=== PATIENT | female | born 1995 | race Two or more races ===

== ENCOUNTER 2017-09-12 18:45 | Emergency (ER) | payer OTHER ==
[~2017-09-12] VITALS: Ht 147.3 cm; Wt 42.4 kg
[2017-09-12 18:52] VITALS: BP 108/64
--- NOTE | 2017-09-12 19:28 | NUR ---
AMBULATED TO ER BED 12
--- NOTE | 2017-09-12 19:41 | NUR ---
22y F BIB FAMILY C/O L FLANK PAIN X 5 MONTHS SHARP INTERRMITTENT; PT STATES PAIN IS NON RADIATING. PT STATES SHE HAS NAUSEA BUT NO VOMIT OR DIARRHEA; PT AAOX4, BREATHING IS UNLABORED AND CLEAR BILAT. PT AMBULATED TO ER BED WITH STEADY GAIT/
--- NOTE | 2017-09-12 20:20 | NUR ---
Patient being evaluated by physician at bedside.
[2017-09-12] MEDS ORDERED: NACL 0.9% 1,000 ML IV ONE (20:25)
[2017-09-12 20:58] LABS: BASOPHILS # (AUTO) 0.1 K/uL (0.00-0.22); BASOPHILS % (AUTO) 1.9 % (0.0-2.0); EOSINOPHILS # (AUTO) 0.2 K/uL (0-0.4); EOSINOPHILS % (AUTO) 4.1 % (0.0-4.0); HEMATOCRIT 41.9 % (36-48); HEMOGLOBIN 13.8 g/dL (12.0-16.0); LYMPHOCYTES # (AUTO) 1.2 K/uL (2.5-16.5); MEAN CORPUSCULAR HEMOGLOBIN 29 pg (27-31); MEAN CORPUSCULAR HGB CONC 33 g/dL (33-37); MEAN CORPUSCULAR VOLUME 88 fL (80-94); MONOCYTES # (AUTO) 0.7 K/uL (0.8-1.0); MONOCYTES % (AUTO) 13.3 % (1.7-9.3); NEUTROPHILS # (AUTO) 3.2 K/uL (1.8-7.7); NEUTROPHILS % (AUTO) 58.7 % (42.2-75.2); PLATELET COUNT (AUTO) 176 K/uL (140-450); RED BLOOD CELL COUNT(AUTO) 4.77 MIL/uL (4.20-5.40); RED CELL DISTRIBUTION WIDTH 13.1 % (11.6-13.7); WHITE BLOOD COUNT (AUTO) 5.4 K/uL (4.5-11.0)
[2017-09-12 21:09] LABS: ANION GAP 11.2 (8-16); CARBON DIOXIDE 27.3 mmol/L (21-32); CHLORIDE 103 mmol/L (98-107); CREATININE 0.7 mg/dL (0.6-1.3); GFR ARICAN-AMERICAN 137 mL/min (>90); GLUCOSE 91 mg/dL (74-106); POTASSIUM 3.5 mmol/L (3.5-5.1); SODIUM SERUM 138 mmol/L (136-145); UREA NITROGEN, BLOOD 15 mg/dL (7-18)
[2017-09-12 21:14] LABS: ALBUMIN 3.9 g/dL (3.4-5.0); ASPARTATE AMINOTRANSFERASE 19 U/L (15-37); LIPASE 190 U/L (73-393); TOTAL BILIRUBIN 0.3 mg/dL (0.0-1.0)
--- NOTE | 2017-09-12 21:50 | NUR ---
Pt taken to CT via w/c.
[2017-09-12 22:15] LABS: APPEARANCE,URINE CLOUDY (CLEAR); BILIRUBIN,URINE 1+ (NEGATIVE); BLOOD, URINE NEGATIVE (NEGATIVE); COLOR,URINE YELLOW (YELLOW); LEUKOCYTE ESTERASE ,URINE NEGATIVE (NEGATIVE); NITRITE, URINE NEGATIVE (NEGATIVE); UGLUCOSE NEGATIVE (NEGATIVE)
[2017-09-12 22:19] LABS: BARBITURATE, URINE NEG. ng/ml (NEG <=200); BENZODIAZEPINE, URINE NEG. ng/mL (NEG <=200); CANNABINOID, URINE NEG. ng/mL (NEG <=50); COCAINE, URINE NEG. ng/mL (NEG <=300); OPIATE, URINE NEG. ng/mL (NEG <=2000); PHENCYCLIDINE SCREEN,URINE NEG. ng/mL (NEG <=25)
--- NOTE | 2017-09-12 22:31 | NUR ---
Pt came back from CT.
[2017-09-12 22:42] LABS: RBC,URINE 0-5 (RARE) /HPF (0-5); WBC,URINE 0-5 (RARE) /HPF (0-5)
[2017-09-12 22:43] LABS: URINE AMORPHOUS URATE 1+ /HPF (None Seen)
--- NOTE | 2017-09-12 22:51 | NUR ---
Pt c/o 05/[address] Rainey made aware.
[2017-09-12] MEDS ORDERED: KETOROLAC 30 MG/ML VIAL IVP ONE (22:55)
--- NOTE | 2017-09-12 23:47 | NUR ---
Patient resting comfortably in bed. VSS. No distress noted.
--- NOTE | 2017-09-13 00:13 | NUR ---
IV removed, catheter intact and site benign. Applied folded 4x4 gauze and tape to stop bleeding.
[2017-09-13 00:14] VITALS: BP 115/57
--- NOTE | 2017-09-13 00:14 | NUR ---
Taxi called. 30 min ETA. Pt waiting in ER lobby for taxi.
--- NOTE | 2017-09-13 00:14 | NUR ---
Patient discharged with v/s stable. Written and verbal after care instructions given and explained. Patient verbalized understanding. Ambulatory with steady gait. All questions addressed prior to discharge. Advised to follow up with PMD.
== END 2017-09-13 00:14 | disposition home or self-care (01) ==
LOC: MED 18:45
DX: R10.84 Generalized abdominal pain (principal)
CPT/HCPCS: 36415; 74177; 80053; 80305; 81001; 81025; 83690; 85025; 96361; 96374; 99285; G0482; J1885; J7030; Q9967

== ENCOUNTER 2021-03-16 07:35 | Emergency (ER) | payer OTHER ==
[~2021-03-16] VITALS: Ht 149.9 cm; Wt 53.5 kg
[2021-03-16 07:39] VITALS: BP 120/71
--- NOTE | 2021-03-16 07:51 | NUR ---
Patient ambulated to bed 12. RN evaluating the patient at bedside.
--- NOTE | 2021-03-16 07:52 | NUR ---
25 Y/O FEMALE C/O MID ABDOMINAL PAIN X YESTERDAY. 7 WEEKS . LMP 12/08/20. PTS FIRST . PT HAD ULTRASOUND 2 DAYS AGO WITH OB & WAS TOLD NO HEART BEAT AND WANTS TO CONFIRM. PT DENIES VAGINAL BLEEDING AND DYSURIA SYMPTOMS. PT DENIES PAIN AT THIS TIME BUT STATES THAT SHE HAS INTERMITTENT ABD CRAMPING. PT DENIES N/V. PT A/O X4 WITH EVEN AND UNLABORED RESPIRATIONS. PT IN GOWN PMH: DENIES NKDA
--- NOTE | 2021-03-16 08:01 | NUR ---
Dr. Sosa is evaluating the patient at bedside.
--- NOTE | 2021-03-16 08:11 | NUR ---
LAB AT BEDSIDE FOR BLOOD DRAW
--- NOTE | 2021-03-16 08:20 | NUR ---
US AT BEDSIDE
[2021-03-16 08:25] LABS: BASOPHILS % (AUTO) 0.4 % (0.0-2.0); EOSINOPHILS # (AUTO) 0.1 K/uL (0-0.4); EOSINOPHILS % (AUTO) 1.7 % (0.0-4.0); HEMATOCRIT 45.5 % (36-48); HEMOGLOBIN 15.6 g/dL (12.0-16.0); LYMPHOCYTES # (AUTO) 1.6 K/uL (2.5-16.5); LYMPHOCYTES % (AUTO) 23.3 % (20.5-51.1); MEAN CORPUSCULAR HEMOGLOBIN 32 pg (27-31); MEAN CORPUSCULAR HGB CONC 34 g/dL (33-37); MEAN CORPUSCULAR VOLUME 92.3 fL (80-94); MONOCYTES # (AUTO) 0.4 K/uL (0.8-1.0); MONOCYTES % (AUTO) 5.4 % (1.7-9.3); NEUTROPHILS # (AUTO) 4.7 K/uL (1.8-7.7); NEUTROPHILS % (AUTO) 69.2 % (42.2-75.2); PLATELET COUNT (AUTO) 202 K/uL (140-450); RED BLOOD CELL COUNT(AUTO) 4.93 MIL/uL (4.20-5.40); RED CELL DISTRIBUTION WIDTH 13.6 % (11.6-13.7); WHITE BLOOD COUNT (AUTO) 6.8 K/uL (4.8-10.8)
[2021-03-16 08:32] LABS: APPEARANCE,URINE SL CLOUDY (CLEAR); BILIRUBIN,URINE NEGATIVE (NEGATIVE); BLOOD, URINE NEGATIVE (NEGATIVE); COLOR,URINE YELLOW (YELLOW); LEUKOCYTE ESTERASE ,URINE NEGATIVE (NEGATIVE); NITRITE, URINE NEGATIVE (NEGATIVE); PH,URINE 7.5 (5.0-9.0); UGLUCOSE NEGATIVE (NEGATIVE)
--- NOTE | 2021-03-16 09:15 | NUR ---
PT LAYING IN BED WITH EVEN AND UNLABORED RESPIRATIONS. MOTHER AT BEDSIDE. WILL CONTINUE TO MONITOR
[2021-03-16 09:26] LABS: ANION GAP 17.2 (8-16); CARBON DIOXIDE 23.6 mmol/L (21-32); CREATININE 0.7 mg/dL (0.6-1.3); POTASSIUM 3.8 mmol/L (3.5-5.1)
[2021-03-16 09:29] LABS: RBC,URINE 0-5 /HPF (0-5)
[2021-03-16 09:30] LABS: WBC,URINE 0-5 /HPF (0-5)
[2021-03-16 10:15] VITALS: BP 120/71
== END 2021-03-16 10:15 | disposition home or self-care (01) ==
LOC: MED 07:35
DX: O02.1 Missed abortion (principal); Z3A.15 15 weeks gestation of pregnancy
CPT/HCPCS: 36415; 76817; 80053; 81001; 81002; 81025; 84702; 85025; 86900; 86901; 99284